=== PATIENT | female | born 1930 | race Caucasian/White ===

== ENCOUNTER 2017-09-29 09:25 | Day surgery (SDC) | payer MEDICARE, BC ==
[~2017-09-29 09:25] MED LIST: Acetaminophen TAB* 325 MG PO PRN; Buffered Lidocaine 0.9% SYRIN* 5 ML/SYR SYRINGE INTRADERM ONE
[2017-09-29] MEDS ORDERED: Midazolam* 1 MG/ML 2 ML VIAL (2 MG) ONE (11:43)
[2017-09-29 12:34] VITALS: BP 119/58
[2017-09-29] MEDS ORDERED: Phenylephrine 2.5% OPTH.SOL* 2 ML BTL ONE (12:51)
[2017-09-29] MEDS ORDERED: Ketorolac 0.5% OPHTH (NF) 0.5 % 5 ML BTL ONE (12:51)
[2017-09-29] MEDS ORDERED: Neomycin/Polymy/Dex OPTH.SUSP* MAXITROL 0.1% 5 ML ONE (12:51)
[2017-09-29] MEDS ORDERED: Lidocaine 1% MPF* 2 ML VIAL ONE (12:51)
[2017-09-29] MEDS ORDERED: Povidone Iodine 5% OPTH* 30 ML BTL ONE (12:51)
[2017-09-29] MEDS ORDERED: Lidocaine 2% EPI 1:200000 MPF* 20 ML VIAL ONE (12:51)
[2017-09-29] MEDS ORDERED: Cyclopentolate 1% OPTH.SOL* 2 ML BTL ONE (12:51)
[2017-09-29] MEDS ORDERED: acetaZOLAMIDE TAB* 250 MG ONE (12:51)
[2017-09-29] MEDS ORDERED: Proparacaine 0.5% OPHTH.SOL* 15 ML BTL ONE (12:52)
--- NOTE | 2017-09-29 13:35 | OP ---
DATE OF OPERATION: 09/29/2017 - [facility] DATE OF : 1930. SURGEON: Kade Mcallister M.D. PREOPERATIVE DIAGNOSIS: Cataract left eye. POSTOPERATIVE DIAGNOSIS: Cataract left eye. OPERATIVE PROCEDURE: Extracapsular cataract extraction with intraocular lens implant left eye. DESCRIPTION OF PROCEDURE: The patient was brought to the operating room after being given 1/2% Alcaine with epinephrine drops in the preoperative area. The eye was prepped and draped in the usual sterile fashion. Sterile drape and eyelid speculum were placed. Again, topical 1/2% Alcaine with epinephrine was given. A paracentesis incision was made at the 3 o'clock position with the No.75 blade. Clear cornea incision 2.2 x 2.2-mm was created at the 6 o'clock position starting at the anterior limbus using the 2.2-mm keratome. The anterior chamber was irrigated with 0.4 mL of 1% non-preservative intracameral lidocaine and filled with DisCoVisc. A capsulorrhexis was completed using the cystotome and the Utrata forceps. Hydrodissection was performed with balanced salt solution. The lens nucleus was removed with the Phacoemulsification handpiece without incident. Cortex was removed with the irrigation-aspiration handpiece. The capsular bag was re-inflated using DisCoVisc and an [id number] 26.5 implant was inserted with the shooter. The irrigation-aspiration handpiece was used to remove all residual DisCoVisc. The eye was refilled with balanced salt solution and the wound checked and found to be watertight. Topical Maxitrol drops were given. [id number]/[facility] #: [id number] [facility]
== END 2017-09-29 12:29 | disposition home or self-care (01) ==
LOC: OREAST 09:25
PROVIDERS: ATTEND Specialist
DX: H25.812 Combined forms of age-related cataract, left eye (principal); H26.491 Other secondary cataract, right eye; H43.813 Vitreous degeneration, bilateral; H35.371 Puckering of macula, right eye; H53.022 Refractive amblyopia, left eye
CPT/HCPCS: A9270-GY; J2250; V2632

== ENCOUNTER 2018-03-24 16:45 | Inpatient (IN) | payer MEDICARE, BC ==
[2018-03-24] MEDS ORDERED: PROCHLORPERAZINE INJ 5 MG/ML 2 ML VIAL IV ONE (17:12)
[2018-03-24] MEDS ORDERED: Morphine VIAL* 4 MG/ML VIAL (1 ml vial) IV ONE (17:12)
[2018-03-24] MEDS ORDERED: NS 0.9% 1000 ML* 1,000 ML IV SCH ×2 (17:15→18:49)
[2018-03-24] MEDS ORDERED: Levofloxacin 750 MG IVPREMIX(* 750 MG/150 ML BAG IVPB ONE (18:27)
[2018-03-24] MEDS ORDERED: ceFAZolin 1 GM in Dextrose (*) 1 GM/50 ML BAG IVPB ONE (18:27)
--- NOTE | 2018-03-24 18:45 | RAD ---
Indication: Right M 20 swelling. 2 views of the right forearm demonstrates comminuted fracture of the distal radius with intra-articular extension and dorsal angulation. There is also fracture of the distal humerus. IMPRESSION: Comminuted fracture distal radius with dorsal angulation as well as of the distal humerus.
[2018-03-24] MEDS ORDERED: Famotidine IV* 10 MG/ML 2 ML (20 mg) IV ONE (18:46)
--- NOTE | 2018-03-24 18:46 | RAD ---
Indication: Right hand injury. 2 views of the right hand demonstrates degenerative changes of the trapezium first metacarpal joint. Comminuted fracture of the distal radius with dorsal angulation is noted. IMPRESSION: Comminuted fracture distal radius with dorsal angulation.
--- NOTE | 2018-03-24 18:47 | ADMNOTE ---
Subjective Date of Service: 03/24/18 Interval History: ADMISSION HISTORY AND PHYSICAL EXAM: Allergies Allergy/AdvReac Type Severity Reaction Status Date / Time meperidine Allergy Headache Verified 03/24/18 17:12 Penicillins Allergy Hives Verified 03/24/18 17:11 Home Medications Medication Instructions Recorded Confirmed Type NK [No Home Medications Reported] 09/23/17 03/24/18 History HPI: About 4 PM today the patient tripped over her dog and fell on a wood stove. She was in much pain and couldn't get up. Her was home and called 911. Family History: Findings - Unremarkable. Social History: Findings - Never smoked, drinks 1 drink per day. Lives with her who is her SDM. Past Medical History: Findings - R shoulder injury 1974 [facility] accident, multiple surgeries, last in 1990. Multiple partial resections of the colon for diverticulitis. 3 children Review of Systems - Measurements Intake and Output: Intake and Output Last 24 Hours 03/22/18 03/23/18 03/24/18 03/25/18 06:59 06:59 06:59 06:59 Weight 114 lb - Review of Systems Constitutional Symptoms: Negative: Weight Gain, Weight Loss, Weakness, Fatigue, Fever, Night Sweats, Unexplained Falls, Other Dermatology: Positive: Normal HEENT: Positive: Normal Eyes: Positive: Normal Thyroid: Positive: Normal Pulmonary: Positive: Normal Cardiology: Positive: Normal Gastroenterology: Positive: Normal Genital - Urinary: Positive: Normal Musculoskeletal: Negative: Joint Pain, Joint Stiffness, Arthritis, Osteoporosis, Low Back Pain , Sciatica, Joint Deformities, Kyphoscoliosis, Other Endocrinology: Positive: Normal Hematologic/Lymphatic: Negative: Anemia, Easy Brusing, Hx Leukemia, Hx Lymphoma, Use of Anticoagulant, Use of Antiplatelet Drugs, Other Neurology: Positive: Normal Psychiatry: Positive: Normal Allergic/Immunologic: Negative: Hx Anaphylaxis, Hx Angioedema, Hx Environmental, Hx Seasonal, Athsma, Hx HIV, Immunocompromise, Swollen Glands LymphNodes, Other Objective Active Medications: Sodium Chloride (Ns 0.9% 1000 Ml*) 1,000 mls @ 150 mls/hr IV PER RATE JOSE ANTONIO Last Admin: 03/24/18 17:34 Dose: 150 mls/hr Cefazolin Sodium/Dextrose (Kefzol 1 Gm In Dextrose Duplex (*)) 1 gm in 50 mls @ 200 mls/hr IVPB ONCE ONE Stop: 03/24/18 18:41 Levofloxacin/Dextrose (Levaquin 750 Mg Ivpremix(*)) 750 mg in 150 mls @ 100 mls /hr IVPB ED ONCE ONE Stop: 03/24/18 19:56 Vital Signs - 8 hr 03/24/18 03/24/18 16:59 17:35 Temperature 98.1 F Pulse Rate 92 Respiratory 20 18 Rate Blood Pressure 153/82 (mmHg) O2 Sat by Pulse 99 Oximetry Oxygen Devices in Use Now: None Appearance: Alert, supine on ED stretcher. Having some pain R arm. Eyes: No Scleral Icterus Neck: NL Appearance and Movements; NL JVP, No Thyroid Enlargement, Masses Respiratory: Symmetrical Chest Expansion and Respiratory Effort, Clear to Auscultation, Clear to Percussion Cardiovascular: NL Sounds; No Murmurs; No JVD, RRR, No Edema, - Abdominal: NL Sounds; No Tenderness; No Distention, No Hepatosplenomegaly Extremities: No Edema, No Clubbing, Cyanosis, - - R arm bandaged and in long splint Skin: No Rash or Ulcers, No Nodules or Sclerosis, - Neurological: Alert and Oriented x 3, NL Sensation Assess/Plan/Problems-Billing Assessment: - Patient Problems (1) Open fracture Current Visit: Yes Status: Acute Code(s): T14.8XXA - OTHER INJURY OF UNSPECIFIED BODY REGION, INITIAL ENCOUNTER SNOMED Code(s): 634012126 Comment: Laceration near R elbow. Rx distal radius and distal humerus. Dr. Awan to consult.
--- NOTE | 2018-03-24 18:47 | RAD ---
Indication: Right humerus injury. 2 views of the right humerus demonstrates fracture of the distal humerus. This appears to be within the lateral epicondyles. IMPRESSION: Fracture lateral epicondyle of the right humerus.
[2018-03-24] MEDS ORDERED: Morphine VIAL* 4 MG/ML VIAL (1 ml vial) IV PRN (18:48)
[2018-03-24] MEDS ORDERED: Famotidine IV* 10 MG/ML 2 ML (20 mg) ONE (19:02)
--- NOTE | 2018-03-24 19:05 | RAD ---
Indication: Right elbow injury. 2 views of the right elbow demonstrates a fracture through the medial epicondyles. The lateral epicondyles intact. IMPRESSION: Fracture through the medial epicondyles.
[2018-03-24 19:12] LABS: ABS Basophils 0.1 10^3/ul (0-0.2); ABS Eosinophils 0 10^3/ul (0-0.6); ABS Lymphocytes 1.5 10^3/ul (1.0-4.8); ABS Monocytes 0.9 10^3/ul (0-0.8); ABS Neutrophils 15.2 10^3/ul (1.5-7.7); ABS Nucleated RBC 0 10^3/ul; Eosinophil % 0 % (0-6); Hematocrit 39 % (35-47); Hemoglobin 13.2 g/dl (12.0-16.0); Lymphocyte % 8.7 % (25-47); Mean Corpuscular HGB Conc 34 g/dl (31-36); Mean Corpuscular Hemoglobin 30 pg (27-31); Mean Corpuscular Volume 90 fL (80-97); Mean Platelet Volume 8.2 um3 (7.4-10.4); Nucleated Red Blood Cells % 0; Platelet Count 298 10^3/ul (150-450); Red Blood Count 4.35 10^6/ul (4.0-5.4); Red Cell Distribution Width 14 % (10.5-15); White Blood Count 17.7 10^3/ul (3.5-10.8)
[2018-03-24] MEDS ORDERED: fentaNYL* 50 MCG/ML 2 ML VIAL (100 MCG VIAL) ONE (19:21)
[2018-03-24] MEDS ORDERED: Atracurium* 10 MG/ML 10 ML VIAL ONE (19:22)
[2018-03-24] MEDS ORDERED: Midazolam* 1 MG/ML 2 ML VIAL (2 MG) ONE (19:22)
[2018-03-24] MEDS ORDERED: KETAMINE HCL* 50 MG/ML 10 ML VIAL ONE (19:22)
[2018-03-24 19:26] LABS: INR 0.92 (0.77-1.02)
[2018-03-24 19:29] LABS: EGFR Non-African American 86.6 (>60)
--- NOTE | 2018-03-24 19:45 | RAD ---
Indication: Postop right elbow fracture. Single frontal view of the chest performed at 1923 hours was reviewed. Comparison is made with previous exam dated June 09, 2007. No mediastinal shift is noted. Heart is of normal size and configuration. Lung jones appear clear. IMPRESSION: NO ACTIVE CARDIOPULMONARY DISEASE IS NOTED.
[2018-03-24] MEDS ORDERED: Clindamycin 900 MG IVPREMIX(* 900 MG/50 ML SDV IV ONE (19:46)
--- NOTE | 2018-03-24 19:46 | RAD ---
Indication: Fall, hip injury. Single view of the pelvis demonstrates pelvic ring to be intact. Bipolar left hip arthroplasty is noted. IMPRESSION: Unremarkable pelvis with left hip bipolar prosthesis.
--- NOTE | 2018-03-24 19:50 | ED ---
eSun Mayberry Stephanie, scribed for Ziggy Hernandez MD on 03/24/18 at 1755 . Upper Extremity Pain - HPI Summary HPI Summary: The pt is an 87 y/o F BIBA to the ED with c/o R wrist pain s/p trip and fall that occurred at 16:00 today. Symptoms include R shoulder soreness and R elbow pain. The pt denies head trauma, neck pain, back pain, abd pain and SOB. - History of Current Complaint Chief Complaint: EDExtremityUpper Stated Complaint: POSSIBLE FRACTURED WRIST Time Seen by Provider: 03/24/18 17:39 Hx Obtained From: Patient Mechanism Of Injury: Fall From A Standing Position Onset/Duration: Started Hours Ago Timing: Constant Severity Currently: Severe Pain Location: Shoulder - R, Elbow - R, Wrist - R Character: Sharp Aggravating Factor(s): Movement Alleviating Factor(s): Nothing Associated Signs & Symptoms: Negative: Chest Pain, SOB, Back Pain, Neck Pain - Allergies/Home Medications Allergies/Adverse Reactions: Allergies Allergy/AdvReac Type Severity Reaction Status Date / Time meperidine Allergy Headache Verified 03/24/18 17:12 Penicillins Allergy Hives Verified 03/24/18 17:11 PMH/Surg Hx/FS Hx/Imm Hx Musculoskeletal History: Reports: 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 ruptured ovarian cyst 1950. diverticulitis surgery 1971, 1972, 1978. left hip pinning repair 1987, left hemiarthroplasty 1987. left hip revision FROM [place] TO TOTAL HIP REPLACEMENT 2006. right shoulder repair 1974, right total shoulder 1990. hysterectomy 1994. right cataract surgery with IOL 2005 Hx Anesthesia Reactions: No - Immunization History Immunizations Up to Date: Yes Infectious Disease History: No Infectious Disease History: Denies: Traveled Outside the [place] in Last 30 Days - Family History Known Family History: Negative: Renal Disease - Social History Occupation: Retired Lives: With Family Alcohol Use: Daily Alcohol Amount: with supper Hx Substance Use: No Substance Use Type: Reports: None Hx Tobacco Use: No Smoking Status (MU): Never Smoked Tobacco Have You Smoked in the Last Year: No Review of Systems Negative: Fever Negative: Shortness Of Breath Negative: Abdominal Pain Musculoskeletal: Negative - neck pain, back pain Positive: Other - R wrist pain, R shoulder pain, R elbow pain Negative: Slurred Speech All Other Systems Reviewed And Are Negative: Yes Physical Exam - Summary Physical Exam Summary: Appearance: Well appearing, no pain distress Skin: warm, dry, reflects adequate perfusion, 5.5 cm lac above elbow/triceps area Head/face: normal Eyes: EOMI, KEMAL ENT: normal Neck: supple, non-tender Respiratory: CTA, breath sounds present Cardiovascular: RRR, pulses symmetrical Abdomen: non-tender, soft Bowel Sounds: present Musculoskeletal: strength/ROM intact, dinnerfork deformity of R wrist. Neuro: sensory motor intact, A&Ox3, Intact light touch and moving sensation in R hand. Triage Information Reviewed: Yes Vital Signs On Initial Exam: Initial Vitals Temp Pulse Resp BP Pulse Ox 98.1 F 92 20 153/82 99 03/24/18 16:59 03/24/18 16:59 03/24/18 16:59 03/24/18 16:59 03/24/18 16:59 Vital Signs Reviewed: Yes Procedures - Splinting Right Upper Extremity Location: R UE Pre-Made Type: OCL Splint: Dressing on wound, posterior splint on arm made of OCL Diagnostics - Vital Signs Vital Signs Temp Pulse Resp BP Pulse Ox 03/24/18 17:35 18 03/24/18 16:59 98.1 F 92 20 153/82 99 - Laboratory Result Diagrams: 03/24/18 18:59 03/24/18 18:59 Lab Statement: Any lab studies that have been ordered have been reviewed, and results considered in the medical decision making process. - Radiology Forearm XRay Xray Interpretation: Positive (See Comments) Radiology Interpretation Completed By: Radiologist - Comminuted fracture distal radius with dorsal angulation as well as of the distal humerus. ED physician has reviewed this report. Hand XRay Xray Interpretation: Positive (See Comments) Radiology Interpretation Completed By: Radiologist - Comminuted fracture distal radius with dorsal angulation. ED physician has reviewed this report. Humerus XRay Xray Interpretation: Positive (See Comments) Radiology Interpretation Completed By: Radiologist - Fracture lateral epicondyle of the right humerus. ED physician has reviewed this report. Elbow XRay Xray Interpretation: Positive (See Comments) Radiology Interpretation Completed By: ED Physician - Medial condyle fracture noted., Radiologist - Fracture through the medial epicondyles. ED physician has reviewed this report. - EKG 18:59 Cardiac Rate: NL EKG Rhythm: Sinus Rhythm - [address] Segment: Normal Ectopy: None EKG Interpretation: Nml axis, nml intervals Re-Evaluation - Re-Evaluation First Eval Change: Improved Course/Dx - Course Course Of Treatment: Patient with fall injuring the right upper extremity which is dominant for her. She has a complex laceration overlying a fracture of her distal humerus at the elbow. We assume that this is an open fracture. Her tetanus is up-to-date. She was given Ancef and Levaquin for the open fracture. A Betadine dressing was applied and the extremity was splinted in a long arm posterior splint. Orthopedic surgeon was consulted came and evaluated the patient at bedside. She will take the patient for operative washout. The hospitalist was contacted and evaluated the patient at bedside and will admit. - Diagnoses Provider Diagnoses: Open fracture of distal end of humerus, Laceration of upper arm, complicated, Distal radius fracture, right - Physician Notifications Discussed Care of Patient With: Yaz Awan - hospitalist will admit. Time Discussed With Above Provider: 18:26 Instructed by Provider To: Other - to OR Discharge - Sign-Out/Discharge Documenting (check all that apply): Discharge/Admit/Transfer - Admit - Discharge Plan Condition: Fair Disposition: ADMITTED TO [facility] - Billing Disposition and Condition Condition: FAIR Disposition: Admitted to [facility] The documentation as recorded by the Seun castelan Stephanie accurately reflects the service I personally performed and the decisions made by , Ziggy Hernandez MD.
[2018-03-24] MEDS ORDERED: Propofol* 10 MG/ML 20 ML BTL IV PUSH ONE (21:01)
[2018-03-24] MEDS ORDERED: PROCHLORPERAZINE INJ 5 MG/ML 2 ML VIAL ONE (21:01)
[2018-03-24] MEDS ORDERED: EPHEDrine (Pressors)* 50 MG/ML VIAL ONE (21:01)
[2018-03-24] MEDS ORDERED: Dexamethasone IV* 4 MG/ML 1 ML (4 MG) ONE (21:01)
[2018-03-24] MEDS ORDERED: DiMENhydriNATE IV* 50 MG/ML VIAL IV PUSH PRN (21:03)
[2018-03-24] MEDS ORDERED: fentaNYL* 50 MCG/ML 2 ML VIAL (100 MCG VIAL) IV PRN (21:03)
[2018-03-24] MEDS ORDERED: Morphine INJ* 2 MG/ML 1 ML CARPUJECT IV PRN (21:03)
[2018-03-24] MEDS ORDERED: Naloxone* 0.4 MG/ML 1 ML VIAL IV PRN (21:03)
[2018-03-24] MEDS ORDERED: Ketorolac INJ* 30 MG/ML 1 ML VIAL ONE (21:12)
[2018-03-24] MEDS ORDERED: Metoprolol Tartrate IV* 1 MG/ML 5 ML VIAL ONE (21:21)
[2018-03-25] MEDS: Clindamycin 600 MG IVPREMIX(* 600 MG/50 ML SDV IV SCH ×3 (04:19→20:25)
[2018-03-25] MEDS: Heparin VIAL(*) 5000 UNITS/ML VIAL (FIVE THOUSAND) SUBCUT SCH ×3 (05:09→20:29)
[2018-03-25 05:35] LABS: ABS Basophils 0 10^3/ul (0-0.2); ABS Eosinophils 0 10^3/ul (0-0.6); ABS Lymphocytes 0.9 10^3/ul (1.0-4.8); ABS Monocytes 0.4 10^3/ul (0-0.8); ABS Neutrophils 8.7 10^3/ul (1.5-7.7); ABS Nucleated RBC 0 10^3/ul; Eosinophil % 0 % (0-6); Hematocrit 35 % (35-47); Hemoglobin 11.9 g/dl (12.0-16.0); Mean Corpuscular HGB Conc 34 g/dl (31-36); Mean Corpuscular Hemoglobin 30 pg (27-31); Mean Corpuscular Volume 90 fL (80-97); Nucleated Red Blood Cells % 0.1; Platelet Count 277 10^3/ul (150-450); Red Blood Count 3.92 10^6/ul (4.0-5.4); Red Cell Distribution Width 14 % (10.5-15)
[2018-03-25 05:48] LABS: INR 0.91 (0.77-1.02)
[2018-03-25 05:56] LABS: EGFR Non-African American 88.2 (>60)
--- NOTE | 2018-03-25 06:12 | PN ---
Progress Note - Progress Note Date of Service: 03/25/18 SOAP: Subjective: Pt seen and examined. Doing well. Block still working. Still unable to feel fingers or move them. Denies SOB or CP. on O2 currently. Objective: Temp Pulse Resp BP Pulse Ox 98.0 F 93 16 95/51 98 03/25/18 04:17 03/25/18 04:17 03/25/18 04:17 03/25/18 04:17 03/25/18 04:17 NAD. AAOx3. comfortable. block still working, densely numb. brisk cap refill. warm, well perfused hand. Assessment: S/p CRPP for open distal both bone, I and D of posterior arm wound with ORIF medial condyle Plan: NWB. splint at all times when block wears off, pain control (will need check of sensation at that point) needs 24 hours of post op iv abx dispo today if meets criteria will need to follow with me in approximately 10 days.
--- NOTE | 2018-03-25 07:22 | RAD ---
INDICATION: Traumatic fractures right wrist and elbow, operative reduction. COMPARISON: Comparison is made with a prior x-ray studies of the right hand and elbow from March 24, 2018. TECHNIQUE: 44 seconds of intermittent fluoroscopic guidance were provided and 7 spot films of the right wrist and elbow were obtained in the operating room. FINDINGS: The films demonstrate placement of 2 K wires spanning the comminuted fracture of the distal radius. In addition there is placement of 2 screws transfixing the fracture of the medial epicondyle. IMPRESSION: INTRAOPERATIVE CONTROL FILMS. CPT II Codes: G9500
--- NOTE | 2018-03-25 10:37 | PN ---
Subjective Date of Service: 03/25/18 Interval History: Adequate pain control. No sensation or motion of R fingers. No BM since admission. No new c/o. Family History: Findings - Unremarkable. Social History: Findings - Never smoked, drinks 1 drink per day. Lives with her who is her SDM. Past Medical History: Findings - R shoulder injury 1974 [facility] accident, multiple surgeries, last in 1990. Multiple partial resections of the colon for diverticulitis. 3 children Objective Active Medications: Heparin Sodium (Porcine) (Heparin Vial(*)) 5,000 units SUBCUT Q8HR [facility] Last Admin: 03/25/18 05:09 Dose: 5,000 units Clindamycin HCl/Dextrose (Cleocin 600 Mg Ivpremix(*) Sdv) 600 mg in 50 mls @ 100 mls/hr IV Q8H [facility] Stop: 03/25/18 22:00 Last Admin: 03/25/18 04:19 Dose: 100 mls/hr Morphine Sulfate (Morphine Vial*) 3 mg IV Q3H PRN PRN Reason: PAIN - SEVERE Vital Signs - 8 hr 03/25/18 03/25/18 03/25/18 04:17 07:31 08:00 Temperature 98.0 F Pulse Rate 93 87 Respiratory 16 18 16 Rate Blood Pressure 95/51 94/52 (mmHg) O2 Sat by Pulse 98 100 100 Oximetry Oxygen Devices in Use Now: None Appearance: Alert, partly up in bed. In good spirits. Looks comfortable. Eyes: No Scleral Icterus Respiratory: Symmetrical Chest Expansion and Respiratory Effort, Clear to Auscultation, Clear to Percussion Cardiovascular: NL Sounds; No Murmurs; No JVD, RRR, No Edema, - Extremities: No Clubbing, Cyanosis, - - R arm bandaged and in sling. Skin: No Rash or Ulcers, No Nodules or Sclerosis, - Result Diagrams: 03/25/18 04:56 03/25/18 05:00 Assess/Plan/Problems-Billing Assessment: - Patient Problems (1) Open fracture Current Visit: Yes Status: Acute Code(s): T14.8XXA - OTHER INJURY OF UNSPECIFIED BODY REGION, INITIAL ENCOUNTER SNOMED Code(s): 079494423 Comment: S/P CRPP, I&D, ORIF R medial condyle. Stop clindamycin after 3rd dose. Consider discharge 03/26 if stable and no complications.
[2018-03-25] MEDS ORDERED: oxyCODONE/Acetamin 5/325 MG* TAB PO PRN (15:21)
[2018-03-25] MEDS ORDERED: oxyCODONE/Acetamin 5/325 MG* TAB ONE (15:25)
--- NOTE | 2018-03-25 17:55 | OP ---
CC: PCP. OPERATIVE REPORT: DATE OF OPERATION: 03/24/18 DATE OF : 34 SURGEON: Yaz Awan MD. SUPERVISOR [employer]: LIBRADO Kee. An therapeutic assistant was needed for the entirety of the case to help with positioning and retraction, and was utilized throughout all portions of the case. ANESTHESIOLOGIST: Dr. Kraft ANESTHESIA: General, with interscalene block. PRE-OP DIAGNOSES: 1. Right distal radius fracture, open, type 1. 2. Medial condyle fracture of the humerus. 3. Large laceration over the posterior arm measuring 10 cm in length that went down to muscle tissue. POST-OP DIAGNOSES: 1. Right distal radius fracture, open, type 1. 2. Medial condyle fracture of the humerus. 3. Large laceration over the posterior arm measuring 10 cm in length that went down to muscle tissue. OPERATIVE PROCEDURE: 1. Right elbow and wrist irrigation and debridement. 2. Closed reduction and pinning of the distal radius. 3. Open reduction and internal fixation of the medial condyle fracture. 4. Primary closure of posterior arm wound COMPLICATIONS: None. ESTIMATED BLOOD LOSS: 50 mL. INDICATIONS: Kim Adams is an 87-year-old right hand dominant female who has a 50-pound dog who ran into her and knocked her over, in which she tripped over and landed on the wood stove. She sustained a large laceration. She was unable to get up. Emergency services were called and she was brought to the ED. In the ED she was evaluated, found to have a large traumatic laceration in the posterior arm as well as a medial condyle fracture and a distal radius fracture. They did not identify that this radius fracture was open. She had a dose of Ancef IV. She was then kept n.p.o., labs were done and she was emergently taken to the ER. She was admitted by the medicine team and found to be medically optimized for surgery. Risks and benefits of the surgery were discussed at length including but not limited to bleeding, infection, damage to nerves, vessels, surrounding structures, wound nonhealing, persistent pain, need for further surgery, scarring, stiffness, incomplete relief of symptoms, risk of anesthesia. DESCRIPTION OF PROCEDURE: The patient was greeted in the preoperative area by the attending surgeon. Correct extremity was marked and consent was confirmed. The patient underwent interscalene nerve block after which she was brought back to the operating suite. She was placed supine position on the operating table. Hand table was brought to the bed. She underwent general anesthesia and LMA intubation after which the right arm was prepped and draped in usual sterile fashion with Betadine due to the large traumatic laceration. After appropriate surgical pause indicating side and site of procedure, administration of antibiotics, the triceps wound, which was found to be deep to the muscle and fascia, but not connecting with joint specifically, was irrigated with approximately 3 L of sterile saline. The poke hole at the distal radius and volar aspect of the ulna, the incision was made a little wider and the wounds were irrigated with approximately 9 L of sterile saline. After the irrigation and debridement was complete, the wrist was then closed reduced, distal radius was closed reduced using x-ray guidance. This was provisionally secured with two 0.062 K-wires. This helped to hold the reduction in the AP and lateral and had rotational stability. At this point, attention was directed to the medial condyle fracture. She has a previous history of a shoulder replacement and limited motion of the arm; therefore, the shoulder was carefully positioned and the elbow was carefully exposed. A 15 blade was used to make an incision in the medial aspect of the elbow, encompassing the medial epicondyle anterior to the ulnar nerve. Soft tissues were carefully dissected to expose the medial epicondyle. X-rays were done, it showed that it has actually been provisionally reduced and was found to be acceptable. At this point, 2 guidewires were placed perpendicular to the fracture line which were the appropriate size for 3-0 cannulated screws. These were then drilled and measured and the appropriate length short threaded screws were then placed with excellent purchase. This allowed for compression of the fracture and stability. Final views were obtained of the wrist and elbow to confirm that it still maintained alignment. Wounds were then copiously irrigated with sterile saline. The medial wound was closed in layers with 2-0 Vicryl and 3-0 Monocryl. The poke hole at the wrist was closed loosely with a 3- 0 Monocryl. The triceps wound was closed in layers with 3-0 Monocryl and 3-0 nylon in interrupted fashion. Sterile dressings were applied. A well padded posterior slab splint was then placed. She was awoken from anesthesia and then transferred to PACU in stable condition. POSTOPERATIVE PLAN: She will be nonweightbearing. She will be in a splint for approximately 10 to 14 days. She will be admitted for 24 hours for antibiotics and potentially discharged tomorrow. I will see the patient back in the office in 10 to 14 days. She will be on 24 hours of clindamycin. DVT prophylaxis considered but deferred due no previous personal or family history except while admitted for antibiotics. [id number]/[facility] #: [id number] [facility]
[2018-03-25] MEDS: oxyCODONE/Acetamin 5/325 MG* TAB PO PRN (21:49)
[2018-03-26] MEDS: oxyCODONE/Acetamin 5/325 MG* TAB PO PRN ×2 (05:26→09:22)
[2018-03-26] MEDS: Heparin VIAL(*) 5000 UNITS/ML VIAL (FIVE THOUSAND) SUBCUT SCH (05:30)
--- NOTE | 2018-03-26 11:27 | PN ---
"Progress Note - Progress Note Date of Service: 03/26/18 Note: Search Terms: nacho desai, 1930 Search Date: 03/26/2018 11:26:24 AM The Drug Utilization Report below displays all of the controlled substance prescriptions, if any, that your patient has filled in the last twelve months. The information displayed on this report is compiled from pharmacy submissions to the Department, and accurately reflects the information as submitted by the pharmacies. This report was requested by: Chris Dukes | Reference #: [id number] There are no results for the search terms that you entered."
[2018-03-26 11:53] VITALS: BP 116/62
--- NOTE | 2018-03-26 15:50 | PN ---
Progress Note - Progress Note Date of Service: 03/26/18 SOAP: Subjective: 87 y/o female s/p R elbow and wrist debridement, closed reduction and pinning distal radius, ORIF medial condyle fracture humerus with Dr. Awan on 03/24/18. Patient resting comfortably in bed with at side. Pain well controlled. Denies numbness or tingling in hand. Denies SOB, CP. VSS. Objective: Vital Signs Temp 98.2 F 03/26/18 11:26 Pulse 85 03/26/18 11:26 Resp 18 03/26/18 11:53 BP 116/62 03/26/18 11:26 Pulse Ox 94 03/26/18 11:26 Intake & Output 03/25/18 03/26/18 03/26/18 18:59 06:59 18:59 Intake Total 1210 970 600 Output Total 300 250 Balance 1210 670 350 Intake: IV Fluids 700 40 NS (0.9%) 700 40 IVPB 50 50 ABX - CLINDAMYCIN 50 50 Oral 460 880 600 Output: Urine 300 250 Other: Estimated Void Large # Voids 1 1 General: WN, WD, NAD, A&O. RUE: Dressing and splint intact. No erythema, edema proximal to splint. Mild edema in hand distal to dressing, no erythema, warmth. Sensation intact to light touch distally. Patient able to move fingers, make okay sign. Brisk capillary refill. Assessment: 87 y/o female s/p R elbow and wrist debridement, closed reduction and pinning distal radius, ORIF medial condyle fracture humerus with Dr. Awan on 03/24/18. Plan: - NWB RUE. Splint at all times. - Postop Abx completed. - D/C home today with services. - F/U with Dr. Awan in about 10 days.
--- NOTE | 2018-03-26 18:26 | DS ---
CC: Dr. Awan DISCHARGE SUMMARY: DATE OF ADMISSION: 03/24/18 DATE OF DISCHARGE: 03/26/18 HISTORY OF PRESENT ILLNESS/HOSPITAL COURSE: This 87-year-old woman had a mechanical fall at home. S he tripped over her dog. She hit her right side on a wood stove. She sustained a fracture of the di stal radius and distal humerus and a large open laceration at the right upper arm. Dr. Awan saw he r and performed CRPP, I and D, and ORIF of the right medial condyle. She was given 3 doses of IV cli ndamycin. She received an antibiotic in the emergency room as well. She did well postoperatively. She will follow up with the orthopedist. FINAL DIAGNOSIS: Open fracture, right arm. DISCHARGE MEDICATION: Oxycodone with acetaminophen 5/325 mg 1 to 2 every 4 hours p.r.n. [id number]/[facility] #: [id number]
== END 2018-03-26 12:00 | disposition home health service (06) | DRG 492 ==
LOC: ED 16:45 → SSU 18:34
PROVIDERS: ADMIT Internal Medicine; ATTEND Internal Medicine
PROC: 0PSC04Z Reposition Right Humeral Head with Internal Fixation Device, Open Approach (ICD-10-PCS; 2018-03-24)
PROC: 0PSH34Z Reposition Right Radius with Internal Fixation Device, Percutaneous Approach (ICD-10-PCS; 2018-03-24)
PROC: 0KQ90ZZ Repair Right Lower Arm and Wrist Muscle, Open Approach (ICD-10-PCS; 2018-03-24)
PROC: 2W3EX1Z Immobilization of Right Hand using Splint (ICD-10-PCS; principal; 2018-03-24 19:55)
DX: S42.461A Displaced fracture of medial condyle of right humerus, initial encounter for closed fracture (principal); S52.501B Unspecified fracture of the lower end of right radius, initial encounter for open fracture type I or II; S41.111A Laceration without foreign body of right upper arm, initial encounter; M19.042 Primary osteoarthritis, left hand; M19.041 Primary osteoarthritis, right hand; H91.93 Unspecified hearing loss, bilateral; Z96.642 Presence of left artificial hip joint; Z96.1 Presence of intraocular lens; Z96.611 Presence of right artificial shoulder joint; H26.9 Unspecified cataract; W17.89XA Other fall from one level to another, initial encounter; Y92.008 Other place in unspecified non-institutional (private) residence as the place of occurrence of the external cause; Z88.0 Allergy status to penicillin; Z88.8 Allergy status to other drugs, medicaments and biological substances; Z97.4 Presence of external hearing-aid; Z90.710 Acquired absence of both cervix and uterus; Z98.41 Cataract extraction status, right eye; Z72.89 Other problems related to lifestyle
CPT/HCPCS: 36415; 71045; 72170; 76000; 80048; 82565; 84520; 85025; 85610; 85730; 93005; 99283; A9270-GY; C1713; C1769; C1776; G8987-GO-CK; G8988-GO-CK; G8989-GO-CK; J0780; J1100; J1644; J1885; J2250; J2270; J2704; J3010; J3490

== ENCOUNTER 2018-04-21 19:05 | Observation (INO) | payer MEDICARE, BC ==
[2018-04-21] MEDS ORDERED: Lidocaine 1% MPF wEPI 200,000* 30 ML SDV INJ ONE (20:43)
--- NOTE | 2018-04-21 20:50 | ED ---
Head Injury - HPI Summary HPI Summary: 87-year-old female presents with head injury today. She states that she was standing up and felt dizzy and fell over and struck the posterior aspect of her head. She also abrasions to her left arm. Full range of motion of her left arm. She denies any loss consciousness. No nausea vomiting. She admits to mild headache. She is not on blood thinners. She has laceration to the posterior aspect of her scalp. The area is actively bleeding. No neck pain. No other injury. She denies any chest pain or shortness breath. She states that she has a history of standing up and getting dizzy due to issues with her inner ear. Her tetanus up-to-date. She does no take a daily aspirin. She has a broken wrist on right hand from a month ago. She denies any dizziness currently. no change in vision or photophobia. no recent illness. - History Of Current Complaint Chief Complaint: EDLacSutureRecheck Stated Complaint: HEAD INJURY Time Seen by Provider: 04/21/18 20:13 Pain Intensity: 4 - Allergies/Home Medications Allergies/Adverse Reactions: Allergies Allergy/AdvReac Type Severity Reaction Status Date / Time meperidine Allergy Headache Verified 03/24/18 17:12 Penicillins Allergy Hives Verified 03/24/18 17:11 PMH/Surg Hx/FS Hx/Imm Hx Endocrine/Hematology History: Denies: Hx Anticoagulant Therapy Cardiovascular History: Denies: Hx Myocardial Infarction GI History: Reports: Hx Diverticulosis Musculoskeletal History: Reports: 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 ruptured ovarian cyst 1950. diverticulitis surgery 1971, 1972, 1978. left hip pinning repair 1987, left hemiarthroplasty 1987. left hip revision FROM [place] TO TOTAL HIP REPLACEMENT 2006. right shoulder repair 1974, right total shoulder 1990. hysterectomy 1994. right cataract surgery with IOL 2005 Hx Anesthesia Reactions: No Infectious Disease History: No Infectious Disease History: Denies: Traveled Outside the [place] in Last 30 Days - Family History Known Family History: Negative: Renal Disease - Social History Alcohol Use: Daily Alcohol Amount: with supper Hx Substance Use: No Substance Use Type: Reports: None Hx Tobacco Use: No Smoking Status (MU): Never Smoked Tobacco Have You Smoked in the Last Year: No Review of Systems Negative: Fever Negative: Chest Pain Negative: Shortness Of Breath Positive: Other - scalp laceration, left arm abrasion Positive: Headache All Other Systems Reviewed And Are Negative: Yes Physical Exam Triage Information Reviewed: Yes Vital Signs On Initial Exam: Initial Vitals Temp Pulse Resp BP Pulse Ox 99.1 F 94 19 139/83 96 04/21/18 19:07 04/21/18 19:07 04/21/18 19:07 04/21/18 19:07 04/21/18 19:07 Vital Signs Reviewed: Yes Appearance: Positive: Well-Appearing Skin: Positive: Warm, Dry, Other - 5cm by 1/2cm scalp laceration, abrasion left arm Head/Face: Positive: Normal Head/Face Inspection, Other - no step off, racoon eyes, ibanez sign Eyes: Positive: Normal, EOMI, KEMAL, Conjunctiva Clear ENT: Positive: Pharynx normal Neck: Positive: Other: - nontender neck Respiratory/Lung Sounds: Positive: Clear to Auscultation, Breath Sounds Present Cardiovascular: Positive: Normal, RRR Abdomen Description: Positive: Nontender, Soft Bowel Sounds: Positive: Present Musculoskeletal: Positive: Normal, Strength/ROM Intact - left arm, Other - good pulses Neurological: Positive: Sensory/Motor Intact, Alert, Oriented to Person Place, Time, CN Intact II-III Psychiatric: Positive: Normal - [place] Coma Scale Best Eye Response: 4 - Spontaneous Best Motor Response: 6 - Obeys Commands Best Verbal Response: 5 - Oriented Coma Scale Total: 15 Procedures - Laceration/Wound Repair 1 Location: head Description: Linear Anesthesia: Local, 1.0%, Epi Length, Depth and Shape: 5cm by 1/2cm Irrigated w/ Saline (ccs): 100 Closure: Mavis #__ - 5 Diagnostics - Vital Signs Vital Signs Temp Pulse Resp BP Pulse Ox 04/21/18 19:07 99.1 F 94 19 139/83 96 - Laboratory Result Diagrams: 04/21/18 21:59 04/21/18 21:59 Lab Statement: Any lab studies that have been ordered have been reviewed, and results considered in the medical decision making process. - CT brain CT Interpretation: Positive (See Comments) - 1. There are hyperattenuating foci at the left cerebellum and left basal ganglia with a Hounsfield unit that could be compatible with blood. In the clinical setting of recent trauma hemorrhagic foci are considered in the absence of prior brain CTs to determine chronicity. 2. Otherwise age-appropriate chronic changes are noted. CT Interpretation Completed By: Radiologist Head Injury Course/Dx Course Of Treatment: 87-year-old female presents with head injury today. She states that she was standing up and felt dizzy and fell over and struck the posterior aspect of her head. She also abrasions to her left arm. Full range of motion of her left arm. She denies any loss consciousness. No nausea vomiting. She admits to mild headache. She is not on blood thinners. She has laceration to the posterior aspect of her scalp. The area is actively bleeding. No neck pain. No other injury. She denies any chest pain or shortness breath. She states that she has a history of standing up and getting dizzy due to issues with her inner ear. Her tetanus up-to-date. She does no take a daily aspirin. She has a broken wrist on right hand from a month ago. She denies any dizziness currently. no change in vision or photophobia. no recent illness. On exam has 5 center by half cm laceration to posterior scalp. Clean area and placed 5 mavis. Has abrasion noted to left arm that cleaned and placed telfa on. Normal neuro exam. Due to age got a CT. CT shows hyperattenuating foci could be compatible with blood. spoke with dr alejo who said that can not differentiate between blood vs calcifciation without a previous CT. spoke with Dr mireles who states best plan is to have admit and do repeat CT in morning. discussed with hospitalist and said to get lab work first. lab work is normal. patient willl be admitted for repeat CT in morning to make sure foci do not grow. - Diagnoses Differential Diagnosis/HQI/PQRI: Concussion Without LOC, Contusion, Intracranial Bleed, Laceration Provider Diagnoses: Scalp laceration, Head injury, Fall Discharge - Sign-Out/Discharge Documenting (check all that apply): Discharge/Admit/Transfer - Discharge Plan Condition: Stable Disposition: ADMITTED TO [facility] - Billing Disposition and Condition Condition: STABLE Disposition: Admitted to [facility]
[2018-04-21] MEDS ORDERED: Lidocaine 2% EPI 1:200000 MPF*10-20 ML VIAL ONE (20:57)
--- NOTE | 2018-04-21 21:22 | RAD ---
INDICATION: Laceration to the posterior occiput after a fall COMPARISON: None. TECHNIQUE: Contiguous axial sections of the brain were obtained from the skull base to the vertex without contrast. FINDINGS: The ventricles, cisterns and sulci exhibit symmetrical involutional changes. Along the anterior medial margin of the lower left temporal lobe (image 5) there is a 3 mm hyperattenuating focus. At the left basal ganglia there is a 3 mm hyperattenuating focus (image 10). There is mild periventricular and subcortical white matter hypoattenuation most consistent with chronic microvascular disease. The carrillo-white matter differentiation is adequately maintained and there is no sulcal effacement. No significant focal abnormality or mass effect is present. There is no evidence for intracranial hemorrhage. No significant focal osseous abnormality is present. The visualized portion of the paranasal sinuses appear clear. The mastoid air cells are well aerated bilaterally. IMPRESSION: 1. There are hyperattenuating foci at the left cerebellum and left basal ganglia with a Hounsfield unit that could be compatible with blood. In the clinical setting of recent trauma hemorrhagic foci are considered in the absence of prior brain CTs to determine chronicity. 2. Otherwise age-appropriate chronic changes are noted.
[2018-04-21 22:14] LABS: ABS Basophils 0.1 10^3/ul (0-0.2); ABS Eosinophils 0 10^3/ul (0-0.6); ABS Lymphocytes 2.3 10^3/ul (1.0-4.8); ABS Monocytes 0.7 10^3/ul (0-0.8); ABS Neutrophils 7.7 10^3/ul (1.5-7.7); ABS Nucleated RBC 0 10^3/ul; Eosinophil % 0.4 % (0-6); Hematocrit 38 % (35-47); Hemoglobin 12.8 g/dl (12.0-16.0); Lymphocyte % 21.4 % (25-47); Mean Corpuscular HGB Conc 33 g/dl (31-36); Mean Corpuscular Hemoglobin 30 pg (27-31); Mean Corpuscular Volume 91 fL (80-97); Mean Platelet Volume 7.5 um3 (7.4-10.4); Nucleated Red Blood Cells % 0; Platelet Count 319 10^3/ul (150-450); Red Blood Count 4.23 10^6/ul (4.00-5.40); Red Cell Distribution Width 13 % (10.5-15); White Blood Count 10.8 10^3/ul (3.5-10.8)
[2018-04-21 22:20] LABS: INR 0.9 (0.77-1.02)
[2018-04-21 22:23] LABS: EGFR Non-African American 98.8 (>60)
[2018-04-21] MEDS ORDERED: oxyCODONE/Acetamin 5/325 MG* TAB PO PRN (23:41)
[2018-04-21] MEDS ORDERED: Ondansetron INJ* 2 MG/ML VIAL IV PRN (23:58)
[2018-04-21] MEDS ORDERED: Meclizine TAB* 12.5 MG PO PRN (23:58)
[2018-04-21] MEDS ORDERED: Acetaminophen TAB* 325 MG PO PRN (23:59)
[2018-04-22] MEDS ORDERED: oxyCODONE/Acetamin 5/325 MG* TAB PO PRN (00:05)
--- NOTE | 2018-04-22 01:41 | HP ---
ADMITTING HISTORY AND PHYSICAL: DATE OF ADMISSION: 04/21/18 CHIEF COMPLAINT: Recent fall. HISTORY OF PRESENT ILLNESS/HOSPITAL COURSE: The patient is an 87-year-old lady with history of osteoporosis, congenital heart murmur and diverticulitis, who was recently admitted for a 2-day hospital stay after mechanical fall she sustained while playing with her dog. She then was found to have a fracture of distal radius and a distal humerus and a large open laceration at her right arm and was seen by Dr. Awan. CRPP was performed and ORIF of the right medial condyle and was subsequently discharged. She mentions that she was in her usual state of health and had a bout of vertigo this morning that led to her mechanical fall at which point she hit her occiput and sustained a laceration and was brought to the ED for further evaluation. In the ED, she had 5 staple bites of the aforementioned occipital laceration, but otherwise feels well. PAST MEDICAL AND SURGICAL HISTORY: The patient being hard of hearing, diverticulitis, congenital heart murmur, back pain secondary to osteoporosis, senile cataracts status post intraocular lens placement, vitreous degeneration, epiretinal membrane, status post tonsillectomy with adenoidectomy, status post left hip replacement, status post right shoulder replacement, hysterectomy, and hip revision status post CRPP and I and D and ORIF of right medial condyle as described above. ALLERGIES: To MEPERIDINE and PENICILLIN. She mentions that DEMEROL causes her to have headaches and vomiting, while PENICILLIN causes some hives and for her throat to close up. FAMILY HISTORY: Noncontributory. Denies any history of heart problems. SOCIAL HISTORY: She is and she is a retired laboratory courier. She has never smoked and occasionally consumes alcohol, a drink per day during dinner. Consumes 1 cup of regular coffee per day. REVIEW OF SYSTEMS: She denied any other prodromal symptoms except for dizziness. Denies any current headache at this time, except for the area of injury. Complains of some vertigo, but unsure whether this dizziness was either new or old. She mentions that her last vertigo was just about 6 or 8 weeks ago, but has had previous history of vertigo 20 years ago. Denied any chest pain, shortness of breath, abdominal pain, diarrhea, constipation, pain and/or increased frequency on urination, myalgias, arthralgias, throat pain or new skin lesions. The rest of the 14-point review of systems are otherwise unremarkable. PHYSICAL EXAMINATION GENERAL APPEARANCE: The patient is awake, alert, and oriented x3, not in acute distress. VITAL SIGNS: Reveals the most recent vital signs of records with blood pressure of 141/97, saturation of 97%, 94 beats per minute heart rate, 99.1 degrees Fahrenheit. HEENT: Normocephalic. She does have a laceration status post 5 staple bites of her occiput more to the right side. PERRLA. Extraocular muscles intact. Negative for icterus. Moist oral mucosa. Negative throat erythema. NECK: Soft, supple with no cervical lymphadenopathy. No JVD. CHEST: Clear to auscultation bilaterally. Good air entry. No wheezes, rales, or rhonchi. HEART: S1, S2 within normal limits. Regular rate and rhythm. No murmurs, rubs , or gallops. ABDOMEN: Soft, nondistended, nontender. Normoactive bowel sounds x4. EXTREMITIES: No cyanosis, clubbing, or edema. PSYCHIATRIC: No active psychosis, depression, suicidal or homicidal ideations. SKIN: Warm to touch. DIAGNOSTIC STUDIES/LAB DATA: Radiological and laboratory data were reviewed. ASSESSMENT AND PLAN: As follows: 1. Question of acuity of hyperattenuating foci in the left cerebellum with unknown acuity per ED provider, Dr. Brown has already been informed the patient, who then suggested to admit the patient for observation and to monitor overnight and for a repeat CT scan of the head noncontrast in a.m., which has already been ordered upon her admission and we will defer with any further recommendations with Neurosurgery. We will place the patient in [address] [place] [address] in telemetry with q.4 hour neuro checks. The patient has also been informed of slow bleed such as a subdural hematoma in elderly patients which was explained to the patient that she currently does not have but was advised to monitor her symptoms for at least 2 to 3 weeks since late bleed can present after a fall especially when she has frequent falls. 2. Fall frequency. We will order PT eval to evaluate her gait and any other needs at home given her recent "mechanical falls just in a span of 2 months." 3. Chronic pain. We will place the patient on current home meds of Percocet 5/ 325 q.4 hours p.r.n. 4. DVT prophylaxis. We will hold off on pharmacologic DVT prophylaxis given question of head bleed, but we will place the patient on SCDs. 5. Disposition. We will also ask for nursing staff to perform orthostatic vital signs for PT/OT eval as above. [id number]/[facility] #: [id number] JINA
[2018-04-22 05:20] LABS: Hematocrit 34 % (35-47); Hemoglobin 11.5 g/dl (12.0-16.0); Mean Corpuscular HGB Conc 34 g/dl (31-36); Mean Corpuscular Hemoglobin 30 pg (27-31); Mean Corpuscular Volume 89 fL (80-97); Mean Platelet Volume 7.5 um3 (7.4-10.4); Platelet Count 305 10^3/ul (150-450); Red Blood Count 3.84 10^6/ul (4.00-5.40); Red Cell Distribution Width 13 % (10.5-15); White Blood Count 11.5 10^3/ul (3.5-10.8)
[2018-04-22 05:37] LABS: EGFR Non-African American 98.8 (>60)
--- NOTE | 2018-04-22 08:19 | RAD ---
INDICATION: Follow-up brain parenchymal findings COMPARISON: CT brain April 21, 2018 TECHNIQUE: Noncontrast axial source images were acquired from the skull base to the vertex. FINDINGS: Ventricles/sulci: The ventricles and cisterns are normal in size and configuration for age. There is age-related cortical atrophy. Brain parenchyma: There is no focal parenchymal finding, evidence of intracranial mass, or intracranial mass effect. There is minor chronic right breast ischemic change Intracranial hemorrhage:None. Extra-axial spaces: There are no abnormal extra axial fluid collections or evidence of extra-axial mass. Calvarium: There is no calvarial fracture or other calvarial abnormality. Scalp: There is no evidence of scalp or extracalvarial soft tissue abnormality. Paranasal sinuses/mastoid: The paranasal sinuses and mastoid air cells are clear. Other: Incidental note is made of a left basal ganglia calcification and a posterior fossa choroid plexus calcification. These account for the 2 hyperattenuating foci. IMPRESSION: No acute intracranial findings.
[2018-04-22 11:47] VITALS: BP 147/83
--- NOTE | 2018-04-23 13:21 | PN ---
Hospitalist Progress Note Date of Service: 04/23/18 Patient was mailed head injury instructions, as they were reviewed at the time of discharge but not included in the discharge instructions.
--- NOTE | 2018-04-25 03:16 | DS ---
CC: Dr. Hernandez; Dr. Houston * DISCHARGE SUMMARY: DATE OF ADMISSION: 04/21/18. DATE OF DISCHARGE: 04/22/18. PROVIDER: Soniya Urban NP. ATTENDING PHYSICIAN: López Grande M.D.* (dictated by Soniya Urban NP) PRIMARY CARE PROVIDER: Dr. Bimal Hernandez. PRIMARY DIAGNOSES: 1. Syncope. 2. Head injury. 3. Fall. 4. Lacerations. SECONDARY DIAGNOSES: 1. Osteoporosis. 2. Heart murmur. 3. Diverticulitis. STUDIES COMPLETED WHILE IN THE HOSPITAL: 1. She had a CT of the brain on 04/21/18. Radiologist impression: There is a hyperattenuating foci at the left cerebellum and the left basal ganglia with a Hounsfield unit that could be compatible with blood in the clinical setting of recent trauma, hemorrhagic foci are considered in the absence of prior brain CT to determine chronicity. 2. Otherwise age-appropriate chronic changes are noted. She had a repeat CT of the head on 04/22/18. Radiologist impression: No acute intracranial findings noted in this exam. Incidental note was made of the left basal ganglia calcification and posterior fossa choroid plexus calcification. These account for the 2 hyperattenuating foci in the previous head CT. DISCHARGE MEDICATION: Oxycodone 5/325 mg 2 tablets p.o. q. 4 hours as needed for pain. HISTORY OF PRESENT ILLNESS/HOSPITAL COURSE: Ms. Adams is an 87-year-old female with a history of osteoporosis, congenital heart murmur, diverticulitis, who was recently admitted to our hospital after she tripped over a dog and fell. She was found to have a fracture to distal radius and distal humerus and a large open laceration to her right arm, was seen by Dr. Awan and was taken to the OR for an ORIF of the medial condyle and was discharged. On the day of admission, 04/21/18, she reports she was in her usual state of health and had a bout of vertigo this morning that led to a mechanical fall at which point she hit her head and sustained a laceration. She was brought to the emergency room for further evaluation. While in the emergency room, she had 5 mavis placed into her head laceration. She had a CT of the brain, which was undetermined whether there was 2 hypoattenuating areas that could possibly be related to hemorrhage, so we were asked to see and evaluate her for admission for syncope or possible hemorrhage. While in the hospital, the patient was monitored on telemetry. She had neuro checks with no significant findings. She did have a repeat CT of the head on , which was noted there was no intracranial pathology, no hemorrhage. The patient remains alert and oriented x3. She has no neurological focal deficits. REVIEW OF SYSTEMS: The patient denies any headaches or dizziness. Denies any nausea, vomiting or diarrhea. Denies any chest pain or shortness of breath. Denies any fever or chills. Denies any urinary frequency or dysuria. Denies any neck pain. A review of 14 systems was completed and all others were negative. PHYSICAL EXAMINATION: General Appearance: The patient is alert and oriented x3. She is in no acute distress. Vital Signs: temperature was 98.5, heart rate 89, respirations 16, O2 saturation on room air was 95%, blood pressure 147/83. HEENT: Head is normocephalic. She does have a laceration to the posterior head with 5 mavis. Pupils are equal and reactive to light. Extraocular eye movements are intact. Neck is supple. There is no C-spine tenderness. Chest is clear to auscultation bilaterally. There are no wheezes, rales, or rhonchi. There is no accessory muscle use. Heart: S1, S2. Regular rate and rhythm. There are no murmurs, rubs, or gallops. Abdomen is soft, nondistended, nontender. Bowel sounds are active x4. Extremities: There is no clubbing, cyanosis or edema. Skin: She has a laceration to the posterior head. There is no bleeding at this time. DISPOSITION: At this time, Ms. Adams is stable for discharge home. DISCHARGE PLAN: Ms. Adams will be discharged home. Activity: As tolerated. 1. Syncope. The patient was monitored on telemetry. There was no arrhythmias noted. She was not orthostatic. The patient was advised to change positions slowly and to get her balance before ambulating. She did report some dizziness prior to falling. 2. Head injury. The patient was advised to watch for signs of increased dizziness, loss of balance, severe headache, changes in her vision. She was instructed to return to the emergency room if she experienced any of these symptoms. 3. Laceration. She should have mavis removed to her posterior head in 10 days. The patient and her were informed of these instructions and instructed to follow up with her primary care provider to have the mavis removed. 4. Right wrist fracture. The patient should continue to follow with Orthopedics as previously scheduled. 5. The patient should follow up with her primary care provider in 4 to 7 days. 6. The patient was instructed to return to the emergency room for any chest pain or shortness of breath, any dizziness, changes in her vision, severe headache, loss of balance, or unable to ambulate. The patient and her verbalized understanding. This is a summarization of her hospitalization. For further details, please see the entire medical record. TIME SPENT: Time spent on this discharge was approximately 60 minutes; greater than half of that time was spent with the patient discussing discharge plans and instructions. CONDITION ON DISCHARGE: Stable. SONIYA URBAN NP [id number]/[facility] #: [id number] JINA
== END 2018-04-22 14:14 ==
LOC: ED 19:05 → MEDTELE 23:21
PROVIDERS: ADMIT Student in an Organized Health Care Education/Training Program; ATTEND Student in an Organized Health Care Education/Training Program
DX: R55 Syncope and collapse (principal); S09.90XA Unspecified injury of head, initial encounter; S01.01XA Laceration without foreign body of scalp, initial encounter; S52.501A Unspecified fracture of the lower end of right radius, initial encounter for closed fracture; S42.401A Unspecified fracture of lower end of right humerus, initial encounter for closed fracture; W01.0XXA Fall on same level from slipping, tripping and stumbling without subsequent striking against object, initial encounter; Y92.9 Unspecified place or not applicable; M81.0 Age-related osteoporosis without current pathological fracture; R01.1 Cardiac murmur, unspecified; G89.29 Other chronic pain; R29.6 Repeated falls; Z88.8 Allergy status to other drugs, medicaments and biological substances; Z88.0 Allergy status to penicillin; Z79.899 Other long term (current) drug therapy
CPT/HCPCS: 12002; 36415; 70450; 80048; 80053; 80061; 82306; 83036; 83735; 84100; 84443; 85025; 85027; 85610; 85730; 99283; G0378; G8978-GP-CI; G8979-GP-CI; G8980-GP-CI; J2001

== ENCOUNTER 2018-06-09 08:31 | Emergency (ER) | payer MEDICARE, BC ==
--- NOTE | 2018-06-09 09:36 | UC ---
Back Pain HPI - HPI Summary HPI Summary: IN-ROOM NOTE: An 88 y/o F presents to [facility] with c/o of lower back pain onset one week ago. Pt was pushing a large box across the carpet and attempted to lift it when she felt sudden pain in her back. Radiates to her RLE occasionally. Aggravating factors: movement. Denies urinary sx or changes, LE numbness/tingling. She is healthy other than a current case of vertigo, that her PCP is aware of. PMHx: upper broken back. PCP is Dr. Hernandez, she last had a physical in March 2018. NOTE: An 88 y/o F, with complex hx of osteoarthritis, lumbar back pain, and compression fractures, c/o R lower lumbar discomfort for six days. Vital signs stable. BP is 133/74. Pain is 10/10 in certain positions. Currently experiencing little or no pain. PMHx: L hip repair in 1987. Visit history: non- contributory to current complaint except as noted above. Pt is on no medication for HTN. NURSE'S NOTE: Back pain in right lower back that started Wednesday afternoon after she was pushing a heavy cart. - History of Current Complaint Chief Complaint: UCBackPain Stated Complaint: BACK PAIN Hx Obtained From: Patient, Family/[employer]ellmong[employer] Worker - present Onset/Duration: Sudden Onset, Lasting Weeks - one week, Still Present Timing: Intermittent - certain positions Severity Initially: Severe Severity Currently: Severe Pain Intensity: 10 - in certain positions Pain Scale Used: 0-10 Numeric Back Pain: Is Discrete @ - low back, R-side, Radiates To - RLE Aggravating Factor(s): Movement - sudden, Walking Associated Signs And Symptoms: Negative: Numbness, Tingling, Bladder Incontinence Related History: Previous Back Injury - Allergies/Home Medications Allergies/Adverse Reactions: Allergies Allergy/AdvReac Type Severity Reaction Status Date / Time meperidine Allergy Headache Verified 06/09/18 08:36 Penicillins Allergy Hives Verified 06/09/18 08:36 Home Medications: Home Medications Ibuprofen 400 mg PO Q6HR 06/09/18 [History Confirmed 06/09/18] PMH/Surg Hx/FS Hx/Imm Hx Previously Healthy: No - back pain hx Other Cardiovascular History: neg: HTN Other Respiratory History: neg: COPD GI/ History: Diverticulitis Other History Of: Negative For: Anticoagulant Therapy - Surgical History Surgical History: Yes Surgery Procedure, Year, and Place: tonsillectomy as a child. ruptured ovarian cyst 1950. diverticulitis surgery 1971, 1972, 1978. left hip pinning repair 1987, left hemiarthroplasty 1987. left hip revision FROM [place] TO TOTAL HIP REPLACEMENT 2006. right shoulder repair 1974, right total shoulder 1990. hysterectomy 1994. right cataract surgery with IOL 2005. right wrist and elbow surgery- 02/2018 - Family History Known Family History: Negative: Diabetes, Renal Disease Family History: [place] - Social History Occupation: Retired - [employer] at [place] Lives: With Family - 2nd Alcohol Use: None Alcohol Amount: with supper Substance Use Type: None Smoking Status (MU): Never Smoked Tobacco Have You Smoked in the Last Year: No - Immunization History Most Recent Influenza Vaccination: 2017 Most Recent Pneumonia Vaccination: 2017 Review of Systems Constitutional: Negative - fever Genitourinary: Negative - urinary sx Musculoskeletal: Other: - pos: lower back pain radiating to RLE; neg: LE numbness / tingling All Other Systems Reviewed And Are Negative: Yes - Comments Additional Review of Systems Comments: POSITIVE: LOWER BACK PAIN RADIATES TO RLE NEGATIVE: URINARY SX, FEVER, LE NUMBNESS/TINGLING Physical Exam - Summary Physical Exam Summary: Appearance: The patient is well-appearing, is in no pain distress, and is well- nourished. PATIENT AMBULATES WITH DISCOMFORT. Eyes: Conjunctiva are clear. ENT: The hearing is grossly normal, the pharynx is normal, and the TMs are normal. There is no muffled or hoarse voice. Neck: The neck is supple and there is no lymphadenopathy. Respiratory: The chest is nontender. The lungs are clear, there are normal breath sounds, and there is no respiratory distress. Cardiovascular: Heart is regular rate and rhythm. MURMUR. Abdomen: The abdomen is soft and nontender. There is no organomegaly. Bowel sounds: present Musculoskeletal: Strength is intact. The patient moves all extremities. PATIENT POINTS TO AREA OF L1, SLIGHTLY TO THE RIGHT, THE AREA OF PAIN WITH SUDDEN MOVEMENT. Neurological: The patient is alert. Psychological: The patient displays age appropriate behavior Skin: Negative for rashes. Triage Information Reviewed: Yes Vital Signs: Initial Vital Signs Temp 98 F 06/09/18 08:38 Pulse 97 06/09/18 08:38 Resp 20 06/09/18 08:38 BP 133/74 06/09/18 08:38 Pulse Ox 98 06/09/18 08:38 Vital Signs Reviewed: Yes Diagnostics - Laboratory Diagnostic Studies Completed/Ordered: L-SPINE XR as read by radiologist: IMPRESSION: 1. OSTEOPENIA. 2. 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 3. STABLE COMPRESSION DEFORMITY OF L1. 4. DEGENERATIVE DISC DISEASE AND OSTEOARTHRITIS. E provider has reviewed this report. Back Pain Course/Dx - Course Course Of Treatment: Medications have been included in the original chart and reviewed. Pre-Hypertensive BP reading of 133/74; patient referred to PCP for follow-up. Discussed at length with pt pain control, and explained new findings in her L-spine XR of T11-T12 compression deformities. Pt noted she did well on Percocet, and agreed that I will give her nine Vicodin, and to use Ibuprofen and symptomatic therapy. - Differential Dx/Diagnosis Provider Diagnoses: 1. Musculoskeletal R lumbar discomfort. 2. Elevated blood pressure without diagnosis of hypertension. 3. Paraoxysmal vertigo. 4. Evidence of T11 T 12 compression fractures compared to 2009, pain is not located over this area Discharge - Sign-Out/Discharge Documenting (check all that apply): Patient Departure - DC All imaging exams completed and their final reports reviewed: Yes - Discharge Plan Condition: Stable Disposition: HOME Prescriptions: HYDROcodone/ACETAMIN 5-325 MG* [[place] 5-325 TAB*] 1 tab PO Q6H 10 Days #10 tab MDD 3 Lidocaine PATCH 5%* [Lidoderm 5% Patch*] 1 patch TRANSDERM DAILY #14 patch MDD 2 A DAY Patient Education Materials: Low Back Strain (ED) Referrals: Bimal Hernandez MD [Primary Care Provider] - Additional Instructions: PLEASE SEEK CARE AT THE EMERGENCY DEPARTMENT IF SYMPTOMS WORSEN OR IF NEW SYMPTOMS DEVELOP. FOLLOW UP WITH YOUR PRIMARY CARE PHYSICIAN. As we discussed, alternate applying hot (heat packs) and cold (ice packs) to the area of pain, approx 10 minutes each. Take hot showers in the morning to help with the pain. Use your back brace as needed and if it continues to help you. This may take several weeks for the pain to resolve. For pain or discomfort use: Use the lidocaine patches and vicodin as prescribed. You may also use Ibuprofen 400 - 600mg every 8 hours. Maximum is 3 doses a day. If this dosage is required for more than 5 days, you should re- check with your doctor. Your blood pressure reading today was 133/74, indicating PREHYPERTENSION. Follow -up with your primary care provider within 4 weeks for blood pressure readings and further evaluation. WE DISCUSSED: 1. You have musculoskeletal pain. 2. See above instructions. 3. Use lidocaine patch, ibuprofen 600 mg, 3 times a day. 4. VICODIN up to 3 times a day. 5. Your doctor should be able to read your new x ray report. 6. Recheck at any time for increased pain or disability. This should get better over the next 2 weeks. - Billing Disposition and Condition Condition: STABLE Disposition: Home - Attestation Statements Document Initiated by Loraine: Yes Documenting Scribe: Danilo Rdz Provider For Whom Loraine is Documenting (Include Credential): Jeff Mejia MD Scribe Attestation: I, Danilo Rdz, scribed for Jeff Mejia MD on 06/09/18 at 1055. Scribe Documentation Reviewed: Yes Provider Attestation: The documentation as recorded by the Danilo castelan accurately reflects the service I personally performed and the decisions made by me, Jeff Mejia MD
--- NOTE | 2018-06-09 10:11 | RAD ---
HISTORY: PAIN RIGHT LUMBAR AFTER BENDING COMPARISONS: February 15, 2009 VIEWS: 5 , Frontal, lateral, coned-down lateral sacral, and bilateral oblique views of the lumbar spine. FINDINGS: ALIGNMENT: There is grade 1 anterolisthesis of L4 on L5. VERTEBRAL BODIES: There is diffuse osteopenia. There is a stable compression deformity of L1. There has been interval development of compression deformities of T11 and T12, new compared to 2009 JOINTS: There is facet hypertrophic change along the lower lumbar spine. INTERVERTEBRAL DISCS: There is diffuse loss of intervertebral disc height. SOFT TISSUE: Unremarkable. OTHER: The patient is status post left hip arthroplasty. IMPRESSION: 1. OSTEOPENIA. 2. 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 3. STABLE COMPRESSION DEFORMITY OF L1. 4. DEGENERATIVE DISC DISEASE AND OSTEOARTHRITIS
[2018-06-09 11:13] VITALS: BP 130/68
== END 2018-06-09 11:11 | disposition home or self-care (01) ==
LOC: UCEAST 08:31
DX: M54.5 Low back pain (principal); R03.0 Elevated blood-pressure reading, without diagnosis of hypertension; M48.54XA Collapsed vertebra, not elsewhere classified, thoracic region, initial encounter for fracture; H81.10 Benign paroxysmal vertigo, unspecified ear; M47.896 Other spondylosis, lumbar region; Z88.5 Allergy status to narcotic agent; Z88.0 Allergy status to penicillin; Z96.642 Presence of left artificial hip joint
CPT/HCPCS: 72110; 99212; G0463